=== PATIENT | female | born 1990 | race Caucasian/White ===

== ENCOUNTER 2016-12-03 21:27 | Inpatient (IN) | payer OTHER ==
[2016-12-03] MEDS ORDERED: Lactated Ringers 1,000 ML ONE (23:01)
[2016-12-03] MEDS ORDERED: Oxytocin/Lactated Ringers 10 UNIT/1,000 ML BAG IV SCH (23:45)
[2016-12-03] MEDS ORDERED: Nalbuphine 20 MG/1 ML Amp IVPUSH PRN (23:59)
[2016-12-03] MEDS ORDERED: Ondansetron 4 MG/2 ML SDV IVPUSH PRN (23:59)
[2016-12-03] MEDS ORDERED: Sodium Chloride 0.9% 10 ML Syringe FLUSH PRN (23:59)
[2016-12-04] MEDS: Lactated Ringers 1,000 ML IV SCH ×2 (00:37→04:00)
--- NOTE | 2016-12-04 01:40 | PCM.PREANE ---
Preanesthetic Assessment - Procedure Proposed Procedure: Labor Epidural - Anesthesia/Transfusion/Family Hx Anesthesia History: No Prior Anesthesia Family History of Anesthesia Reaction: No - Review of Systems General: No Symptoms Pulmonary: No Symptoms Cardiovascular: No Symptoms Gastrointestinal: No symptoms Neurological: No Symptoms Other: Reports: None - Physical Assessment NPO Status Date: 12/04/16 NPO Status Time: 19:00 Pulse: 64 O2 Sat by Pulse Oximetry: 100 Respiratory Rate: 18 Blood Pressure: 119/66 Temperature: 36.0 C Height: 1.71 m Weight: 74.389 kg ASA Class: 2 Mental Status: Alert & Oriented x3 Airway Class: Mallampati = 1 Dentition: Reports: Normal 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) Thyro-Mental Finger Breadths: 3 Mouth Opening Finger Breadths: 3 ROM/Head Extension: Full Lungs: Clear to auscultation, Normal respiratory effort Cardiovascular: Regular Rate, Regular Rhythm, No Murmurs - Lab Values: Laboratory Last Values WBC 15.85 K/mm3 (3.98-10.04) H 12/04/16 00:20 RBC 4.15 M/mm3 (3.98-5.22) 12/04/16 00:20 Hgb 11.8 gm/L (11.2-15.7) 12/04/16 00:20 Hct 35.2 % (34.1-44.9) 12/04/16 00:20 MCV 84.8 fl (79.4-94.8) 12/04/16 00:20 MCH 28.4 pg (25.6-32.2) 12/04/16 00:20 MCHC 33.5 g/dl (32.2-35.5) 12/04/16 00:20 RDW Std Deviation 41.1 fL (36.4-46.3) 12/04/16 00:20 Plt Count 228 K/mm3 (182-369) 12/04/16 00:20 MPV 11.7 fl (9.4-12.3) 12/04/16 00:20 Neut % (Auto) 75.1 % (34.0-71.1) H 12/04/16 00:20 Lymph % (Auto) 16.9 % (19.3-51.7) L 12/04/16 00:20 [place] % (Auto) 6.5 % (4.7-12.5) 12/04/16 00:20 Eos % (Auto) 0.6 (0.7-5.8) L 12/04/16 00:20 Baso % (Auto) 0.3 % (0.1-1.2) 12/04/16 00:20 Neut # (Auto) 11.91 K/mm3 (1.56-6.13) H 12/04/16 00:20 Lymph # (Auto) 2.68 K/mm3 (1.18-3.74) 12/04/16 00:20 [place] # (Auto) 1.03 K/mm3 (0.24-0.36) H 12/04/16 00:20 Eos # (Auto) 0.10 K/mm3 (0.04-0.36) 12/04/16 00:20 Baso # (Auto) 0.04 K/mm3 (0.01-0.08) 12/04/16 00:20 Membrane Rupture Positive H 12/03/16 22:10 Blood Type O POSITIVE 12/04/16 00:20 Gel Antibody Screen Negative 12/04/16 00:20 - Allergies Allergies/Adverse Reactions: Allergies Allergy/AdvReac Type Severity Reaction Status Date / Time No Known Allergies Allergy Verified 10/23/14 00:21 - Blood Blood Available: No - Acknowledgements Anesthesia Type Planned: Epidural Pt an Appropriate Candidate for the Planned Anesthesia: Yes Alternatives and Risks of Anesthesia Discussed w Pt/Guardian: Yes Pt/Guardian Understands and Agrees with Anesthesia Plan: Yes PreAnesthesia Questionnaire - Past Health History Medical/Surgical History: Denies Medical/Surgical History - SUBSTANCE USE Smoking Status *Q: Never Smoker Tobacco Use Within Last Twelve Months: No Second Hand Smoke Exposure: No Days Per Week of Alcohol Use: 0 Recreational Drug Use History: No - HOME MEDS Home Medications: Home Meds Naproxen [Naprosyn] 500 mg PO Q12HR #30 tab 10/23/14 [Rx] - CURRENT (IN HOUSE) MEDS Current Meds: Current Medications Lactated Ringer's (Ringers, Lactated) 1,000 mls @ 100 mls/hr IV ASDIRECTED KAYLAN Last Admin: 12/04/16 00:37 Dose: 100 mls/hr Oxytocin/Lactated Ringer's (Pitocin In Lr 10 Units/1,000 Ml) 10 unit in 1,000 mls @ 500 mls/hr IV TITRATE KAYLAN Nalbuphine HCl (Nubain) 10 mg IVPUSH Q2H PRN PRN Reason: Pain (moderate 4-6) Ondansetron HCl (Zofran) 4 mg IVPUSH Q4H PRN PRN Reason: Nausea/Vomiting Last Admin: 12/04/16 00:31 Dose: 4 mg Sodium Chloride (Saline Flush) 10 ml FLUSH ASDIRECTED PRN PRN Reason: Keep Vein Open Discontinued Medications Lactated Ringer's (Ringers, Lactated) Confirm Administered Dose 1,000 mls @ as directed .ROUTE .K-MED ONE Stop: 12/03/16 23:02 Last Admin: 12/04/16 00:37 Dose: Not Given Preanesthetic Assessment - PHYSICAL ASSESSMENT Height: 1.71 m Weight: 74.389 kg - LAB Values: Laboratory Last Values WBC 15.85 K/mm3 (3.98-10.04) H 12/04/16 00:20 RBC 4.15 M/mm3 (3.98-5.22) 12/04/16 00:20 Hgb 11.8 gm/L (11.2-15.7) 12/04/16 00:20 Hct 35.2 % (34.1-44.9) 12/04/16 00:20 MCV 84.8 fl (79.4-94.8) 12/04/16 00:20 MCH 28.4 pg (25.6-32.2) 12/04/16 00:20 MCHC 33.5 g/dl (32.2-35.5) 12/04/16 00:20 RDW Std Deviation 41.1 fL (36.4-46.3) 12/04/16 00:20 Plt Count 228 K/mm3 (182-369) 12/04/16 00:20 MPV 11.7 fl (9.4-12.3) 12/04/16 00:20 Neut % (Auto) 75.1 % (34.0-71.1) H 12/04/16 00:20 Lymph % (Auto) 16.9 % (19.3-51.7) L 12/04/16 00:20 [place] % (Auto) 6.5 % (4.7-12.5) 12/04/16 00:20 Eos % (Auto) 0.6 (0.7-5.8) L 12/04/16 00:20 Baso % (Auto) 0.3 % (0.1-1.2) 12/04/16 00:20 Neut # (Auto) 11.91 K/mm3 (1.56-6.13) H 12/04/16 00:20 Lymph # (Auto) 2.68 K/mm3 (1.18-3.74) 12/04/16 00:20 [place] # (Auto) 1.03 K/mm3 (0.24-0.36) H 12/04/16 00:20 Eos # (Auto) 0.10 K/mm3 (0.04-0.36) 12/04/16 00:20 Baso # (Auto) 0.04 K/mm3 (0.01-0.08) 12/04/16 00:20 Membrane Rupture Positive H 12/03/16 22:10 Blood Type O POSITIVE 12/04/16 00:20 Gel Antibody Screen Negative 12/04/16 00:20 - ALLERGIES Allergies/Adverse Reactions: Allergies Allergy/AdvReac Type Severity Reaction Status Date / Time No Known Allergies Allergy Verified 10/23/14 00:21
[2016-12-04] MEDS: Bupivacaine/fentaNYL/NS 100 ML Bag EPIDUR SCH ×2 (02:17→09:53)
--- NOTE | 2016-12-04 06:29 | PCM.LDHP ---
L&D History of Present Illness - General Date of Service: 12/04/16 Admit Problem/Dx: Patient Status Order with Admit Dx/Problem 12/03/16 21:39 Patient Status [ADT] Routine Patient Status: Refer to Observation Admission Diagnosis/Problem: Reason for Admit: preg Nurse Unit Type: Labor and Delivery Admitting Physician: Marla Marcelino Attending Physician: Marla Marcelino Medicare 96 Hour Certification Statement: This Patient is Admitted for Inpatient Services and is Medically Appropriate and Meets Medical Necessity for Inpatient Admission. I Reasonably Expect the Patient Will Require Inpatient Services That Span a Period of Time Over 2 Midnights. My Rationale for Medically Necessary Inpatient Care Will Be Found in the Admission History & Physical and Progress Notes. I Reasonably Expect the Patient to be Discharged or Transferred Within 96 Hours After Admission to This Critical [facility] Hospital. Admission Diagnosis/Problem Admission Diagnosis/Problem Source of Information: Patient History Limitations: Reports: No limitations - History of Present Illness Introduction:: Patient is a 26-year-old at 38-5/7 weeks gestation who presents today for spontaneous rupture of membranes. This occurred at approximately 9 PM tonight. Has been having some tightening and cramping of the abdomen, but nothing quite so uncomfortable that she would call contractions yet. - Related Data Allergies/Adverse Reactions: Allergies Allergy/AdvReac Type Severity Reaction Status Date / Time No Known Allergies Allergy Verified 10/23/14 00:21 Home Medications: Home Meds Naproxen [Naprosyn] 500 mg PO Q12HR #30 tab 10/23/14 [Rx] Past Medical History - Past Health History Medical/Surgical History: Denies Medical/Surgical History Genitourinary History: Reports: Other (see below) Other Genitourinary History: kidney infection at 26 weeks R[facility]ON CONER History: Reports: : 1 Para: 0 Social & Family History - Family History Family Medical History: Noncontributory - Tobacco Use Smoking Status *Q: Never Smoker Second Hand Smoke Exposure: No - Alcohol Use Alcohol Use History: No Days Per Week of Alcohol Use: 0 - Recreational Drug Use Recreational Drug Use: No H&P Review of Systems - Review of Systems: Review Of Systems: See Below General: Reports: no symptoms Pulmonary: Reports: No Symptoms Cardiovascular: Reports: no symptoms Gastrointestinal: Reports: No symptoms Genitourinary: Reports: no symptoms Musculoskeletal: Reports: no symptoms L&D Exam - Exam Exam: See Below - Vital Signs Vital Signs: Last Vital Signs Temp 36.0 C 12/04/16 01:46 Pulse 64 12/04/16 01:46 Resp 18 12/04/16 01:46 BP 119/66 12/04/16 01:46 Pulse Ox 100 12/04/16 01:46 Weight: 74.389 kg - OB Specific Contraction Intensity: Mild to Moderate movement: active heart tones: present heart tones per min: 125 Heart Rate (FHR) Variability: Moderate (6-25 bmp) Presentation: Vertex - Vang Score Vang Score Cervix Position: Anterior Vang Score Consistency: Soft Vang Score Effacement: 51-70% Vang Score Dilation: 1-2 cm Vang Score 's Station: -2 Vang Score Total: 8 - Exam General: alert, oriented, cooperative Lungs: Clear to auscultation, Normal respiratory effort Cardiovascular: regular rate, regular rhythm Abdomen: soft Genitourinary: Normal external exam Extremities: normal inspection Skin: warm, dry, intact - Patient Data Lab Results last 24 hrs: Laboratory Results - last 24 hr 12/03/16 12/04/16 12/04/16 Range/Units 22:10 00:20 00:20 WBC 15.85 H (3.98-10.04) K/mm3 RBC 4.15 (3.98-5.22) M/mm3 Hgb 11.8 (11.2-15.7) gm/L Hct 35.2 (34.1-44.9) % MCV 84.8 (79.4-94.8) fl MCH 28.4 (25.6-32.2) pg MCHC 33.5 (32.2-35.5) g/dl RDW Std Deviation 41.1 (36.4-46.3) fL Plt Count 228 (182-369) K/mm3 MPV 11.7 (9.4-12.3) fl Neut % (Auto) 75.1 H (34.0-71.1) % Lymph % (Auto) 16.9 L (19.3-51.7) % [place] % (Auto) 6.5 (4.7-12.5) % Eos % (Auto) 0.6 L (0.7-5.8) Baso % (Auto) 0.3 (0.1-1.2) % Neut # (Auto) 11.91 H (1.56-6.13) K/mm3 Lymph # (Auto) 2.68 (1.18-3.74) K/mm3 [place] # (Auto) 1.03 H (0.24-0.36) K/mm3 Eos # (Auto) 0.10 (0.04-0.36) K/mm3 Baso # (Auto) 0.04 (0.01-0.08) K/mm3 Membrane Rupture Positive H Blood Type O POSITIVE Gel Antibody Screen Negative Result Diagrams: 12/04/16 00:20 - Problem List (1) 38 weeks gestation of SNOMED Code(s): 38756282 ICD Code: Z3A.38 - 38 WEEKS GESTATION OF Status: Acute Current Visit: Yes (2) SROM (spontaneous rupture of membranes) SNOMED Code(s): 148578766 ICD Code: OXA9225 - Status: Acute Current Visit: Yes Problem List Initiated/Reviewed/Updated: Yes Orders Last 24hrs: Active Orders 24 hr Category Date Time Status Patient Status [ADT] Routine ADT 12/03/16 21:39 Active Activity as Tolerated [RC] PFP Care 12/03/16 23:59 Active Communication Order [RC] ASDIRECTED Care 12/03/16 23:59 Active Communication Order [RC] ASDIRECTED Care 12/04/16 01:34 Active Notify Provider [RC] ASDIRECTED Care 12/04/16 01:34 Active Notify Provider [RC] PFP Care 12/03/16 23:59 Active Notify Provider [RC] PRN Care 12/03/16 23:59 Active Oxygen Therapy [RC] ASDIRECTED Care 12/04/16 01:34 Active Peripheral IV Care [RC] . DIRECTED Care 12/04/16 00:01 Active Urinary Catheter Assessment [RC] ASDIRECTED Care 12/03/16 23:59 Active Vital Signs [RC] PER UNIT ROUTINE Care 12/03/16 23:59 Hold Vital Signs [RC] Q15M Care 12/04/16 01:34 Hold Clear Liquid Diet [DIET] Diet 12/05/16 Breakfast Active PATIENT RETYPE [BBK] Stat Lab 12/04/16 00:20 Results TYPE AND SCREEN [BBK] Stat Lab 12/03/16 23:59 Results Bupivacaine/fentaNYL/NS [fentaNYL/Bupivacaine/NS 2 MCG- Med 12/04/16 01:45 Active 0.125% 100 ML] 100 ml EPIDUR ASDIRECTED Lactated Ringers [Ringers, Lactated] 1,000 ml Med 12/03/16 23:45 Active IV ASDIRECTED Nalbuphine [Nubain] Med 12/03/16 23:59 Active 10 mg IVPUSH Q2H PRN Ondansetron [Zofran] Med 12/03/16 23:59 Active 4 mg IVPUSH Q4H PRN Oxytocin/Lactated Ringers [Pitocin in LR 10 Units/1,000 Med 12/03/16 23:45 Active ML] 10 unit in 1,000 ml IV TITRATE Sodium Chloride 0.9% [Saline Flush] Med 12/03/16 23:59 Active 10 ml FLUSH ASDIRECTED PRN Electronic Heart Tones Ext w TOCO [WOMSER] Oth 12/03/16 23:59 Ordered Routine Electronic Heart Tones Internal [WOMSER] Per Unit Oth 12/03/16 23:59 Ordered Routine Peripheral IV Insertion Adult [OM.PC] Routine Oth 12/03/16 23:59 Ordered Pulse Oximetry Continuous Monitoring [OM.PC] Routine Oth 12/04/16 01:34 Active Medication Orders Fentanyl/Bupivacaine HCl (Fentanyl/Bupivacaine/Ns 2 Mcg-0.125% 100 Ml) 100 ml EPIDUR ASDIRECTED [facility] Last Admin: 12/04/16 02:17 Dose: 100 ml Lactated Ringer's (Ringers, Lactated) 1,000 mls @ 100 mls/hr IV ASDIRECTED KAYLAN Last Admin: 12/04/16 04:00 Dose: 100 mls/hr Infusion: 12/04/16 01:30 Dose: 100 mls/hr Admin: 12/04/16 00:37 Dose: 100 mls/hr Oxytocin/Lactated Ringer's (Pitocin In Lr 10 Units/1,000 Ml) 10 unit in 1,000 mls @ 500 mls/hr IV TITRATE KAYLAN Nalbuphine HCl (Nubain) 10 mg IVPUSH Q2H PRN PRN Reason: Pain (moderate 4-6) Ondansetron HCl (Zofran) 4 mg IVPUSH Q4H PRN PRN Reason: Nausea/Vomiting Last Admin: 12/04/16 00:31 Dose: 4 mg Sodium Chloride (Saline Flush) 10 ml FLUSH ASDIRECTED PRN PRN Reason: Keep Vein Open Assessment/Plan Comment:: 6-year-old at 38-5/7 weeks gestation presents with SROM * CBC and type and screen * GBS negative, no need for antibiotics * Pain management per patient preference * Anticipate
--- NOTE | 2016-12-04 06:30 | PCM.PNLD ---
Labor Progress Note - VS & Meds Vital Signs: Last Vital Signs Temp 36.0 C 12/04/16 01:46 Pulse 64 12/04/16 01:46 Resp 18 12/04/16 01:46 BP 119/66 12/04/16 01:46 Pulse Ox 100 12/04/16 01:46 Active Medications: Current Medications Fentanyl/Bupivacaine HCl (Fentanyl/Bupivacaine/Ns 2 Mcg-0.125% 100 Ml) 100 ml EPIDUR ASDIRECTED COUNTS INCLUDE 234 BEDS AT THE [facility] Last Admin: 12/04/16 02:17 Dose: 100 ml Lactated Ringer's (Ringers, Lactated) 1,000 mls @ 100 mls/hr IV ASDIRECTED KAYLAN Last Admin: 12/04/16 04:00 Dose: 100 mls/hr Oxytocin/Lactated Ringer's (Pitocin In Lr 10 Units/1,000 Ml) 10 unit in 1,000 mls @ 500 mls/hr IV TITRATE COUNTS INCLUDE 234 BEDS AT THE [facility] Nalbuphine HCl (Nubain) 10 mg IVPUSH Q2H PRN PRN Reason: Pain (moderate 4-6) Ondansetron HCl (Zofran) 4 mg IVPUSH Q4H PRN PRN Reason: Nausea/Vomiting Last Admin: 12/04/16 00:31 Dose: 4 mg Sodium Chloride (Saline Flush) 10 ml FLUSH ASDIRECTED PRN PRN Reason: Keep Vein Open Discontinued Medications Lactated Ringer's (Ringers, Lactated) Confirm Administered Dose 1,000 mls @ as directed .ROUTE .STK-MED ONE Stop: 12/03/16 23:02 Last Admin: 12/04/16 00:37 Dose: Not Given - Uterine Contractions Uterine Monitoring Mode: External [place] Contraction Intensity: Moderate to Strong - Monitoring Monitor Mode: External Ultrasound Heart Rate (FHR) Baseline: 120 Heart Rate (FHR) Variability: Moderate (6-25 bmp) Accelerations: Present, 15x15 Decelerations: Early Strip Review: Category I - Vaginal Exam Dilation (cm): 8 Effacement (Percent): 90 Station: 1 Cervical Position: Anterior - Labor Progress (Free Text) Labor Progress: Doing well. Comfortable with epidural. Continue present management
[2016-12-04] MEDS ORDERED: Bupivacaine 0.25% 10 ML SDV ONE (10:00)
--- NOTE | 2016-12-04 12:23 | PCM.DEL ---
L & D Note - General Info Date of Service: 12/04/16 - Delivery Note Labor: spontaneous Delivery Outcome: Livebirth Delivery Method: Spontaneous Vaginal Delivery Delivery Mode: Spontaneous Presentation: Right Occiput Anterior (CHANDU) Nuchal cord: present, reduced Anesthesia Type: Epidural Amniotic Fluid Description: Clear Episiotomy Type: None Laceration: 2nd degree Suture type: vicryl Suture size: 2-0 Placenta: intact, spontaneous Cord: 3 vessels Estimated blood loss: 300 Resuscitation needed: Yes [place]: bulb syringe, stimulated, warmed, blanket used, warmer used Score 1 min: 8 Score 5 min: 9 Delivery Comments (Free Text/Narrative):: Patient found to be complete and began pushing. With maternal pushing effort head delivered from an CHANDU presentation. Nuchal cord present and reduced. With gentle downward traction the shoulders and body delivered. Infant placed on maternal abdomen. Cord clamped and cut. Cord blood obtained. Placenta allowed time to separate and then spontaneously expelled. Inspection of the perineum showed a 2nd degree laceration which was repaired in the typical fashion . - Patient Data Vitals - most recent: Last Vital Signs Temp 36.0 C 12/04/16 01:46 Pulse 64 12/04/16 01:46 Resp 18 12/04/16 01:46 BP 119/66 12/04/16 01:46 Pulse Ox 100 12/04/16 01:46 Weight - most recent: 74.389 kg I&O - last 24 hours: Intake & Output 12/03/16 12/04/16 12/04/16 22:59 06:59 14:59 Intake Total 0 Balance 0 Lab Results last 24 hrs: Laboratory Results - last 24 hr 12/03/16 12/04/16 12/04/16 Range/Units 22:10 00:20 00:20 WBC 15.85 H (3.98-10.04) K/mm3 RBC 4.15 (3.98-5.22) M/mm3 Hgb 11.8 (11.2-15.7) gm/L Hct 35.2 (34.1-44.9) % MCV 84.8 (79.4-94.8) fl MCH 28.4 (25.6-32.2) pg MCHC 33.5 (32.2-35.5) g/dl RDW Std Deviation 41.1 (36.4-46.3) fL Plt Count 228 (182-369) K/mm3 MPV 11.7 (9.4-12.3) fl Neut % (Auto) 75.1 H (34.0-71.1) % Lymph % (Auto) 16.9 L (19.3-51.7) % [place] % (Auto) 6.5 (4.7-12.5) % Eos % (Auto) 0.6 L (0.7-5.8) Baso % (Auto) 0.3 (0.1-1.2) % Neut # (Auto) 11.91 H (1.56-6.13) K/mm3 Lymph # (Auto) 2.68 (1.18-3.74) K/mm3 [place] # (Auto) 1.03 H (0.24-0.36) K/mm3 Eos # (Auto) 0.10 (0.04-0.36) K/mm3 Baso # (Auto) 0.04 (0.01-0.08) K/mm3 Membrane Rupture Positive H Blood Type O POSITIVE Gel Antibody Screen Negative Med Orders - Current: Current Medications Fentanyl/Bupivacaine HCl (Fentanyl/Bupivacaine/Ns 2 Mcg-0.125% 100 Ml) 100 ml EPIDUR ASDIRECTED [facility] Last Admin: 12/04/16 09:53 Dose: 100 ml Lactated Ringer's (Ringers, Lactated) 1,000 mls @ 100 mls/hr IV ASDIRECTED [facility] Last Admin: 12/04/16 04:00 Dose: 100 mls/hr Oxytocin/Lactated Ringer's (Pitocin In Lr 10 Units/1,000 Ml) 10 unit in 1,000 mls @ 500 mls/hr IV TITRATE [facility] Nalbuphine HCl (Nubain) 10 mg IVPUSH Q2H PRN PRN Reason: Pain (moderate 4-6) Ondansetron HCl (Zofran) 4 mg IVPUSH Q4H PRN PRN Reason: Nausea/Vomiting Last Admin: 12/04/16 00:31 Dose: 4 mg Sodium Chloride (Saline Flush) 10 ml FLUSH ASDIRECTED PRN PRN Reason: Keep Vein Open Discontinued Medications Lactated Ringer's (Ringers, Lactated) Confirm Administered Dose 1,000 mls @ as directed .ROUTE .STK-MED ONE Stop: 12/03/16 23:02 Last Admin: 12/04/16 00:37 Dose: Not Given - Problem List & Annotations (1) 38 weeks gestation of SNOMED Code(s): 20112497 Code(s): Z3A.38 - 38 WEEKS GESTATION OF Status: Acute Current Visit: Yes (2) SROM (spontaneous rupture of membranes) SNOMED Code(s): 092076377 Code(s): JMG0825 - Status: Acute Current Visit: Yes (3) Vaginal delivery SNOMED Code(s): 366301157 Code(s): O80 - ENCOUNTER FOR FULL-TERM UNCOMPLICATED DELIVERY Status: Acute Current Visit: Yes - Problem List Review Problem List Initiated/Reviewed/Updated: Yes - My Orders Last 24 Hours: My Active Orders 12/03/16 21:39 Patient Status [ADT] Routine 12/03/16 23:45 Lactated Ringers [Ringers, Lactated] 1,000 ml IV ASDIRECTED Oxytocin/Lactated Ringers [Pitocin in LR 10 Units/1,000 ML] 10 unit in 1,000 ml IV TITRATE 12/03/16 23:59 Activity as Tolerated [RC] PFP Communication Order [RC] ASDIRECTED Notify Provider [RC] PFP Notify Provider [RC] PRN Urinary Catheter Assessment [RC] ASDIRECTED Vital Signs [RC] PER UNIT ROUTINE Nalbuphine [Nubain] 10 mg IVPUSH Q2H PRN Ondansetron [Zofran] 4 mg IVPUSH Q4H PRN Sodium Chloride 0.9% [Saline Flush] 10 ml FLUSH ASDIRECTED PRN Electronic Heart Tones Ext w TOCO [WOMSER] Routine Electronic Heart Tones Internal [WOMSER] Per Unit Routine Peripheral IV Insertion Adult [OM.PC] Routine 12/04/16 00:01 Peripheral IV Care [RC] . DIRECTED 12/04/16 12:19 Patient Status Manage Transfer [TRANSFER] Routine Resuscitation Status Routine 12/04/16 Breakfast Regular Diet [DIET] - Assessment Assessment:: 26 y/o G1 now P1 PPD#0 from at 38 6/7 wks - Plan Plan:: * Routine cares * Encourage breast feeding * Discharge home in 1-2 days
[2016-12-04] MEDS ORDERED: Witch Hazel Medicated Pads 100/Jar TOP PRN (14:06)
[2016-12-04] MEDS ORDERED: Benzocaine/Menthol 20%-0.5% Spray 56 GM Canister TOP PRN (14:06)
[2016-12-04] MEDS ORDERED: Lanolin 100% Cream 7 GM Tube TOP PRN (14:06)
[2016-12-04] MEDS ORDERED: Acetaminophen 325 MG Tab PO PRN (14:06)
[2016-12-04] MEDS ORDERED: Ibuprofen 600 MG Tab PO PRN (14:06)
[2016-12-04] MEDS ORDERED: Docusate Sodium 100 MG Cap PO PRN (14:06)
--- NOTE | 2016-12-05 06:53 | PCM.PNPP ---
- General Info Date of Service: 12/05/16 Functional Status: Reports: pain controlled, tolerating diet, ambulating, urinating - Review of Systems General: Reports: No Symptoms Pulmonary: Reports: no symptoms Cardiovascular: Reports: No Symptoms Gastrointestinal: Reports: No symptoms Genitourinary: Reports: no symptoms Musculoskeletal: Reports: no symptoms - Patient Data Vital Signs - most recent: Last Vital Signs Temp 36.8 C 12/05/16 03:27 Pulse 83 12/05/16 03:27 Resp 18 12/05/16 03:27 BP 112/63 12/05/16 03:27 Pulse Ox 97 12/05/16 03:27 Weight - most recent: 74.389 kg I&O - last 24 hours: Intake & Output 12/04/16 12/04/16 12/05/16 14:59 22:59 06:59 Intake Total 0 0 Balance 0 0 Lab Results - last 24 hrs: Laboratory Results - last 24 hr 12/04/16 Range/Units 00:20 Blood Type O POSITIVE Gel Antibody Screen Negative Med Orders - Current: Current Medications Acetaminophen (Tylenol) 650 mg PO Q4H PRN PRN Reason: mild pain or fever Benzocaine/Menthol (Dermoplast Pain Relief [place]) 0 gm TOP ASDIRECTED PRN PRN Reason: Perineal Comfort Measure Last Admin: 12/04/16 14:20 Dose: 1 spray Docusate Sodium (Colace) 100 mg PO BID PRN PRN Reason: Constipation Emollient Ointment (Lansinoh Hpa) 0 gm TOP ASDIRECTED PRN PRN Reason: Sore Nipples Ibuprofen (Motrin) 600 mg PO Q4H PRN PRN Reason: Mild pain or fever Witch Radha (Tucks) 1 pad TOP ASDIRECTED PRN PRN Reason: Hemorrhoid pain Last Admin: 12/04/16 14:20 Dose: 1 pad Discontinued Medications Fentanyl/Bupivacaine HCl (Fentanyl/Bupivacaine/Ns 2 Mcg-0.125% 100 Ml) 100 ml EPIDUR ASDIRECTED [facility] Last Admin: 12/04/16 09:53 Dose: 100 ml Lactated Ringer's (Ringers, Lactated) Confirm Administered Dose 1,000 mls @ as directed .ROUTE .STK-MED ONE Stop: 12/03/16 23:02 Last Admin: 12/04/16 00:37 Dose: Not Given Lactated Ringer's (Ringers, Lactated) 1,000 mls @ 100 mls/hr IV ASDIRECTED [facility] Last Admin: 12/04/16 04:00 Dose: 100 mls/hr Oxytocin/Lactated Ringer's (Pitocin In Lr 10 Units/1,000 Ml) 10 unit in 1,000 mls @ 500 mls/hr IV TITRATE [facility] Last Admin: 12/04/16 12:03 Dose: 500 mls/hr Nalbuphine HCl (Nubain) 10 mg IVPUSH Q2H PRN PRN Reason: Pain (moderate 4-6) Ondansetron HCl (Zofran) 4 mg IVPUSH Q4H PRN PRN Reason: Nausea/Vomiting Last Admin: 12/04/16 00:31 Dose: 4 mg Sodium Chloride (Saline Flush) 10 ml FLUSH ASDIRECTED PRN PRN Reason: Keep Vein Open - Interaction Disposition, : [place] in Room with Family Infant Interaction: Holding Feeding: Breastfed ; Nursed Well Support Person: - Recovery Exam Fundal Tone: Firm Fundal Level: 1 Fingerbreadths Below Umbilicus Fundal Placement: Midline Lochia Amount: Small Lochia Color: Rubra/Red Perineum Description: Other (see below) Other Perinuem Description: repaired 2nd degree laceration Episiotomy/Laceration: Approximated Bladder Status: Voiding Urinary Elimination: Voided - Exam General: alert, oriented, cooperative Abdomen: soft, no tenderness Extremities: no edema Skin: warm, dry, intact - Problem List & Annotations (1) 38 weeks gestation of SNOMED Code(s): 02405706 Code(s): Z3A.38 - 38 WEEKS GESTATION OF Status: Acute Current Visit: Yes (2) SROM (spontaneous rupture of membranes) SNOMED Code(s): 342042650 Code(s): NSG4808 - Status: Acute Current Visit: Yes (3) Vaginal delivery SNOMED Code(s): 581133534 Code(s): O80 - ENCOUNTER FOR FULL-TERM UNCOMPLICATED DELIVERY Status: Acute Current Visit: Yes - Problem List Review Problem List Initiated/Reviewed/Updated: Yes - My Orders Last 24 Hours: My Active Orders 12/04/16 12:19 Resuscitation Status Routine 12/04/16 14:06 Activity as Tolerated [RC] PER UNIT ROUTINE Vital Signs [RC] Q8HR Acetaminophen [Tylenol] 650 mg PO Q4H PRN Benzocaine/Menthol [Dermoplast Pain Relief [place]] See Dose Instructions TOP ASDIRECTED PRN Docusate Sodium [Colace] 100 mg PO BID PRN Ibuprofen [Motrin] 600 mg PO Q4H PRN Lanolin [Lansinoh HPA] See Dose Instructions TOP ASDIRECTED PRN Witch Radha [Tucks] 1 pad TOP ASDIRECTED PRN Assess Lochia [WOMSER] Per Unit Routine Assess Uterine Involution [WOMSER] Per Unit Routine Breast Pump [WOMSER] Per Unit Routine Heat Therapy [OM.PC] PRN Ice Therapy [OM.PC] Per Unit Routine Perineal Care [OM.PC] Per Unit Routine Peripheral IV Discontinue [OM.PC] Routine Sitz Bath [OM.PC] Per Unit Routine 12/04/16 Lunch Regular Diet [DIET] 12/05/16 14:06 Heat Therapy [OM.PC] PRN - Assessment Assessment:: 26 y/o G1 now P1 PPD#1 from at 38 6/7 wks - Plan Plan:: * Routine cares * Encourage breast feeding * Discharge home today per patient preference
--- NOTE | 2016-12-05 07:39 | PCM.DCSUM1 ---
Discharge Summary - Discharge Data Discharge Date: 12/05/16 Discharge Disposition: Home, Self-Care 01 Condition: Good - Discharge Diagnosis/Problem(s) (1) 38 weeks gestation of SNOMED Code(s): 28229407 ICD Code: Z3A.38 - 38 WEEKS GESTATION OF Status: Acute Current Visit: Yes (2) SROM (spontaneous rupture of membranes) SNOMED Code(s): 162251533 ICD Code: [id number] - Status: Acute Current Visit: Yes (3) Vaginal delivery SNOMED Code(s): 640527406 ICD Code: O80 - ENCOUNTER FOR FULL-TERM UNCOMPLICATED DELIVERY Status: Acute Current Visit: Yes - Patient Summary/Data Complications: None Consults: None Recommended Follow-up Testing/Procedures: Follow up in 5-6 weeks for check Hospital Course: 26 y/o at 38 5/7 wks presented with SROM. She progressed well to complete dilation without the need for augmentation. She underwent an uncomplicated . see delivery note. she did well and was discharged home on PPD #1 per her preference - Patient Instructions Diet: Regular Diet as Tolerated Activity: As Tolerated Activity, Other: Pelvic rest for 6 weeks Driving: May Drive Today Showering/Bathing: May Shower Showering/Bathing, Other: May Bathe Notify Provider of: Fever, Increased Pain, Drainage, Nausea and/or Vomiting - Discharge Plan Home Medications: Home Meds Ibuprofen [IJD: Ibuprofen] 600 mg PO Q4H PRN #0 tablet 12/05/16 [Rx] Patient Handouts: Home Care Instructions for Mom, Eating Plan for Women Referrals: Marla Marcelino MD [Primary Care Provider] - (5-6 weeks post check ) - Discharge Summary/Plan Comment DC Time >30 min.: No - Patient Data Vitals - Most Recent: Last Vital Signs Temp 36.8 C 12/05/16 03:27 Pulse 83 12/05/16 03:27 Resp 18 12/05/16 03:27 BP 112/63 12/05/16 03:27 Pulse Ox 97 12/05/16 03:27 Weight - Most Recent: 74.389 kg I&O - Last 24 hours: Intake & Output 12/04/16 12/05/16 12/05/16 22:59 06:59 14:59 Intake Total 0 Balance 0 Lab Results - Last 24 hrs: Laboratory Results - last 24 hr 12/04/16 Range/Units 00:20 Blood Type O POSITIVE Gel Antibody Screen Negative Med Orders - Current: Current Medications Acetaminophen (Tylenol) 650 mg PO Q4H PRN PRN Reason: mild pain or fever Benzocaine/Menthol (Dermoplast Pain Relief [place]) 0 gm TOP ASDIRECTED PRN PRN Reason: Perineal Comfort Measure Last Admin: 12/04/16 14:20 Dose: 1 spray Docusate Sodium (Colace) 100 mg PO BID PRN PRN Reason: Constipation Emollient Ointment (Lansinoh Hpa) 0 gm TOP ASDIRECTED PRN PRN Reason: Sore Nipples Ibuprofen (Motrin) 600 mg PO Q4H PRN PRN Reason: Mild pain or fever Witch Radha (Tucks) 1 pad TOP ASDIRECTED PRN PRN Reason: Hemorrhoid pain Last Admin: 12/04/16 14:20 Dose: 1 pad Discontinued Medications Fentanyl/Bupivacaine HCl (Fentanyl/Bupivacaine/Ns 2 Mcg-0.125% 100 Ml) 100 ml EPIDUR ASDIRECTED [facility] Last Admin: 12/04/16 09:53 Dose: 100 ml Lactated Ringer's (Ringers, Lactated) Confirm Administered Dose 1,000 mls @ as directed .ROUTE .STK-MED ONE Stop: 12/03/16 23:02 Last Admin: 12/04/16 00:37 Dose: Not Given Lactated Ringer's (Ringers, Lactated) 1,000 mls @ 100 mls/hr IV ASDIRECTED [facility] Last Admin: 12/04/16 04:00 Dose: 100 mls/hr Oxytocin/Lactated Ringer's (Pitocin In Lr 10 Units/1,000 Ml) 10 unit in 1,000 mls @ 500 mls/hr IV TITRATE [facility] Last Admin: 12/04/16 12:03 Dose: 500 mls/hr Nalbuphine HCl (Nubain) 10 mg IVPUSH Q2H PRN PRN Reason: Pain (moderate 4-6) Ondansetron HCl (Zofran) 4 mg IVPUSH Q4H PRN PRN Reason: Nausea/Vomiting Last Admin: 12/04/16 00:31 Dose: 4 mg Sodium Chloride (Saline Flush) 10 ml FLUSH ASDIRECTED PRN PRN Reason: Keep Vein Open *Q Meaningful Use (DIS) - VTE *Q VTE Criteria *Q: - Stroke *Q Stroke Criteria *Q: - AMI *Q AMI Criteria *Q:
[2016-12-05 20:28] VITALS: BP 110/63
== END 2016-12-05 23:55 | disposition home or self-care (01) | DRG 775 ==
LOC: JD.OBCHECK 21:27 → JD.OB 21:27 → JD.OBCHECK 21:38 → JD.OB 21:39 → OBSVTOIN 12-04 12:02
PROVIDERS: ADMIT Obstetrics & Gynecology; ATTEND Obstetrics & Gynecology
PROC: 10E0XZZ Delivery of Products of Conception, External Approach (ICD-10-PCS; principal; 2016-12-04)
PROC: 0KQM0ZZ Repair Perineum Muscle, Open Approach (ICD-10-PCS; 2016-12-04)
PROC: 00HU33Z Insertion of Infusion Device into Spinal Canal, Percutaneous Approach (ICD-10-PCS; 2016-12-04)
PROC: 3E0R3CZ (ICD-10-PCS; 2016-12-04)
DX: O42.92 Full-term premature rupture of membranes, unspecified as to length of time between rupture and onset of labor (principal); O70.1 Second degree perineal laceration during delivery; O69.81X0 Labor and delivery complicated by cord around neck, without compression, not applicable or unspecified; Z3A.39 39 weeks gestation of pregnancy; Z37.0 Single live birth
CPT/HCPCS: 36415; 84112; 85025; 86850; 86900; 86901; A9270-GY; J2405; J2590; J7120

== ENCOUNTER 2018-09-10 04:08 | Inpatient (IN) | payer BC ==
[2018-09-10] MEDS ORDERED: Nalbuphine 20 MG/ML 1 ML Syringe IVPUSH PRN (04:27)
[2018-09-10] MEDS ORDERED: Ondansetron 4 MG/2 ML SDV IVPUSH PRN (04:37)
[2018-09-10] MEDS ORDERED: Sodium Chloride 0.9% 10 ML Syringe FLUSH PRN (04:37)
[2018-09-10] MEDS ORDERED: Oxytocin/Lactated Ringers 10 UNIT/1,000 ML BAG IV SCH (04:45)
[2018-09-10] MEDS ORDERED: fentaNYL 100 MCG/2 ML SDV EPIDUR PRN (04:48)
[2018-09-10] MEDS ORDERED: diphenhydrAMINE 50 MG/ML SDV IVPUSH PRN (04:48)
[2018-09-10] MEDS ORDERED: ePHEDrine 50 MG/ML SDV IVPUSH PRN (04:48)
[2018-09-10] MEDS: Lactated Ringers 1,000 ML IV SCH ×4 (04:57→10:45)
[2018-09-10] MEDS ORDERED: Bupivacaine/fentaNYL/NS 100 ML Bag EPIDUR SCH (05:00)
--- NOTE | 2018-09-10 05:07 | PCM.PREANE ---
Preanesthetic Assessment - Procedure Proposed Procedure: jeff - Anesthesia/Transfusion/Family Hx Anesthesia History: Prior Anesthesia Without Reaction Family History of Anesthesia Reaction: No Transfusion History: No Prior Transfusion(s) - Review of Systems General: No Symptoms Pulmonary: No Symptoms Cardiovascular: No Symptoms Gastrointestinal: No Symptoms Neurological: No Symptoms Other: Reports: None - Physical Assessment O2 Sat by Pulse Oximetry: 100 Respiratory Rate: 16 Vital Signs: Last Vital Signs Temp 99.4 F 09/10/18 04:27 Pulse 80 09/10/18 04:27 Resp 16 09/10/18 04:27 BP 135/84 09/10/18 04:27 Pulse Ox 100 09/10/18 04:27 Height: 5 ft 7 in Weight: 88.314 kg ASA Class: 2 Mental Status: Alert & Oriented x3 Airway Class: Mallampati = 1 Dentition: Reports: Normal Dentition Thyro-Mental Finger Breadths: 3 Mouth Opening Finger Breadths: 3 ROM/Head Extension: Full Lungs: Clear to Auscultation, Normal Respiratory Effort Cardiovascular: Regular Rate, Regular Rhythm - Allergies Allergies/Adverse Reactions: Allergies Allergy/AdvReac Type Severity Reaction Status Date / Time No Known Allergies Allergy Verified 09/10/18 05:05 - Blood Blood Available: No - Acknowledgements Anesthesia Type Planned: Epidural Pt an Appropriate Candidate for the Planned Anesthesia: Yes Alternatives and Risks of Anesthesia Discussed w Pt/Guardian: Yes Pt/Guardian Understands and Agrees with Anesthesia Plan: Yes PreAnesthesia Questionnaire - Past Health History Medical/Surgical History: Denies Medical/Surgical History HEENT History: Reports: None Cardiovascular History: Reports: None Respiratory History: Reports: None Gastrointestinal History: Reports: GERD (with preg) Genitourinary History: Reports: Other (See Below) Other Genitourinary History: 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: : 2 (39 weeks) Para: 1 - Past Surgical History HEENT Surgical History: Reports: None - History Comment History Comment: vits only - SUBSTANCE USE Smoking Status *Q: Never Smoker Tobacco Use Within Last Twelve Months: No Second Hand Smoke Exposure: No Days Per Week of Alcohol Use: 0 Recreational Drug Use History: No - HOME MEDS Home Medications: Home Meds PNV95/Ferrous Fumarate/FA [ Tablet] 1 tab PO DAILY 09/10/18 [History] - CURRENT (IN HOUSE) MEDS Current Meds: Current Medications Diphenhydramine HCl (Benadryl) 25 mg IVPUSH Q6H PRN PRN Reason: pruritis Ephedrine Sulfate (Ephedrine Sulfate) 5 mg IVPUSH ASDIRECTED PRN PRN Reason: Hypotension Fentanyl (Sublimaze) 100 mcg EPIDUR Q3H PRN PRN Reason: Pain Fentanyl/Bupivacaine HCl (Fentanyl/Bupivacaine/Ns 2 Mcg-0.125% 100 Ml) 100 ml EPIDUR ASDIRECTED [facility] Lactated Ringer's (Ringers, Lactated) 1,000 mls @ 100 mls/hr IV ASDIRECTED [facility] Last Admin: 09/10/18 04:57 Dose: 999 mls/hr Oxytocin/Lactated Ringer's (Pitocin In Lr 10 Units/1,000 Ml) 10 unit in 1,000 mls @ 500 mls/hr IV ASDIRECTED [facility] Nalbuphine HCl (Nubain) 10 mg IVPUSH Q2H PRN PRN Reason: pain Ondansetron HCl (Zofran) 4 mg IVPUSH Q4H PRN PRN Reason: Nausea/Vomiting Sodium Chloride (Saline Flush) 10 ml FLUSH ASDIRECTED PRN PRN Reason: Keep Vein Open
--- NOTE | 2018-09-10 07:53 | PCM.LDHP ---
L&D History of Present Illness - General Date of Service: 09/10/18 Admit Problem/Dx: Patient Status Order with Admit Dx/Problem 09/10/18 04:37 Patient Status [ADT] Routine Admission Diagnosis/Problem Admission Diagnosis/Problem Source of Information: Patient History Limitations: Reports: No Limitations - History of Present Illness Introduction:: 28 y/o at 39 0/7 wks who presents this AM in labor. Doing well. Contractions started at about 0100. Became worse this early AM. No other issues. 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): Social & Family History - Family History Family Medical History: Noncontributory - Tobacco Use Smoking Status *Q: Never Smoker Second Hand Smoke Exposure: No - Caffeine Use Caffeine Use: Reports: None - Alcohol Use Alcohol Use History: No Days Per Week of Alcohol Use: 0 - Recreational Drug Use Recreational Drug Use: No H&P Review of Systems - Review of Systems: Review Of Systems: See Below General: Reports: No Symptoms Pulmonary: Reports: No Symptoms Cardiovascular: Reports: No Symptoms Gastrointestinal: Reports: No Symptoms Genitourinary: Reports: No Symptoms Musculoskeletal: Reports: No Symptoms Psychiatric: Reports: No Symptoms Neurological: Reports: No Symptoms L&D Exam - Exam Exam: See Below - Vital Signs Vital Signs: Last Vital Signs Temp 37.4 C 09/10/18 04:27 Pulse 80 09/10/18 04:27 Resp 16 09/10/18 05:07 BP 135/84 09/10/18 04:27 Pulse Ox 100 09/10/18 05:07 Weight: 88.314 kg - OB Specific Contraction Intensity: Moderate Movement: Active Heart Tones: Present Heart Tones per Min: 125 Heart Rate (FHR) Variability: Moderate (6-25 bmp) Presentation: Vertex - Vang Score Vang Score Cervix Position: Anterior Vang Score Consistency: Soft Vang Score Effacement: 51-70% Vang Score Dilation: > 5 cm Vang Score Infant's Station: -1 ,0 Vang Score Total: 11 - Exam General: Alert, Oriented, Cooperative Lungs: Clear to Auscultation, Normal Respiratory Effort Cardiovascular: Regular Rate, Regular Rhythm GI/Abdominal Exam: Soft, Non-Tender Genitourinary: Normal external exam Extremities: Normal Inspection Skin: Warm, Dry, Intact - Patient Data Lab Results Last 24 hrs: Laboratory Results - last 24 hr 09/10/18 09/10/18 Range/Units 04:55 04:55 WBC 9.36 (3.98-10.04) K/mm3 RBC 4.09 (3.98-5.22) M/mm3 Hgb 10.1 L (11.2-15.7) gm/L Hct 32.3 L (34.1-44.9) % MCV 79.0 L (79.4-94.8) fl MCH 24.7 L (25.6-32.2) pg MCHC 31.3 L (32.2-35.5) g/dl RDW Std Deviation 41.4 (36.4-46.3) fL Plt Count 273 (182-369) K/mm3 MPV 10.7 (9.4-12.3) fl Neut % (Auto) 64.5 (34.0-71.1) % Lymph % (Auto) 27.1 (19.3-51.7) % [place] % (Auto) 6.6 (4.7-12.5) % Eos % (Auto) 1.2 (0.7-5.8) Baso % (Auto) 0.2 (0.1-1.2) % Neut # (Auto) 6.03 (1.56-6.13) K/mm3 Lymph # (Auto) 2.54 (1.18-3.74) K/mm3 [place] # (Auto) 0.62 H (0.24-0.36) K/mm3 Eos # (Auto) 0.11 (0.04-0.36) K/mm3 Baso # (Auto) 0.02 (0.01-0.08) K/mm3 Blood Type O POSITIVE Gel Antibody Screen Negative Result Diagrams: 09/10/18 04:55 - Problem List (1) 39 weeks gestation of SNOMED Code(s): 03663260 ICD Code: Z3A.39 - 39 WEEKS GESTATION OF Status: Acute Current Visit: Yes (2) Normal labor SNOMED Code(s): 74107709 ICD Code: O80 - ENCOUNTER FOR FULL-TERM UNCOMPLICATED DELIVERY; Z37.9 - OUTCOME OF DELIVERY, UNSPECIFIED Status: Acute Current Visit: Yes Problem List Initiated/Reviewed/Updated: Yes Orders Last 24hrs: Active Orders 24 hr Category Date Time Status Patient Status [ADT] Routine ADT 09/10/18 04:37 Active Activity as Tolerated [RC] PFP Care 09/10/18 04:27 Active Communication Order [RC] ASDIRECTED Care 09/10/18 04:27 Active Heart Tones [RC] ASDIRECTED Care 09/10/18 04:38 Active Non Stress Test [RC] PER UNIT ROUTINE Care 09/10/18 04:27 Active Notify Provider [RC] ASDIRECTED Care 09/10/18 04:48 Active Notify Provider [RC] PFP Care 09/10/18 04:27 Active Notify Provider [RC] PRN Care 09/10/18 04:27 Active Peripheral IV Care [RC] . DIRECTED Care 09/10/18 04:38 Active Vital Signs [RC] PER UNIT ROUTINE Care 09/10/18 04:27 Active Regular Diet [DIET] Diet 09/10/18 Breakfast Active RAPID PLASMA REAGIN,RPR [CHEM] Routine Lab 09/10/18 04:55 Received Bupivacaine/fentaNYL/NS [fentaNYL/Bupivacaine/NS 2 MCG- Med 09/10/18 05:00 Active 0.125% 100 ML] 100 ml EPIDUR ASDIRECTED Lactated Ringers [Ringers, Lactated] 1,000 ml Med 09/10/18 04:30 Active IV ASDIRECTED Nalbuphine [Nubain] Med 09/10/18 04:27 Active 10 mg IVPUSH Q2H PRN Ondansetron [Zofran] Med 09/10/18 04:37 Active 4 mg IVPUSH Q4H PRN Oxytocin/Lactated Ringers [Pitocin in LR 10 Units/1,000 Med 09/10/18 04:45 Active ML] 10 unit in 1,000 ml IV ASDIRECTED Sodium Chloride 0.9% [Saline Flush] Med 09/10/18 04:37 Active 10 ml FLUSH ASDIRECTED PRN diphenhydrAMINE [Benadryl] Med 09/10/18 04:48 Active 25 mg IVPUSH Q6H PRN ePHEDrine [ePHEDrine sulfate] Med 09/10/18 04:48 Active 5 mg IVPUSH ASDIRECTED PRN fentaNYL [Sublimaze] Med 09/10/18 04:48 Active 100 mcg EPIDUR Q3H PRN Electronic Heart Tones Ext w TOCO [WOMSER] Oth 09/10/18 04:27 Ordered Routine Electronic Heart Tones Internal [WOMSER] Per Unit Oth 09/10/18 04:27 Ordered Routine Peripheral IV Insertion Adult [OM.PC] Routine Oth 09/10/18 04:27 Ordered Resuscitation Status Routine Resus Stat 09/10/18 04:27 Ordered Medication Orders Diphenhydramine HCl (Benadryl) 25 mg IVPUSH Q6H PRN PRN Reason: pruritis Ephedrine Sulfate (Ephedrine Sulfate) 5 mg IVPUSH ASDIRECTED PRN PRN Reason: Hypotension Fentanyl (Sublimaze) 100 mcg EPIDUR Q3H PRN PRN Reason: Pain Last Admin: 09/10/18 05:10 Dose: 100 mcg Fentanyl/Bupivacaine HCl (Fentanyl/Bupivacaine/Ns 2 Mcg-0.125% 100 Ml) 100 ml EPIDUR ASDIRECTED [facility] Last Admin: 09/10/18 05:10 Dose: 100 ml Lactated Ringer's (Ringers, Lactated) 1,000 mls @ 100 mls/hr IV ASDIRECTED [facility] Last Admin: 09/10/18 06:48 Dose: 150 mls/hr Infusion: 09/10/18 06:48 Dose: 999 mls/hr Admin: 09/10/18 05:58 Dose: 999 mls/hr Infusion: 09/10/18 05:58 Dose: 999 mls/hr Admin: 09/10/18 04:57 Dose: 999 mls/hr Oxytocin/Lactated Ringer's (Pitocin In Lr 10 Units/1,000 Ml) 10 unit in 1,000 mls @ 500 mls/hr IV ASDIRECTED [facility] Nalbuphine HCl (Nubain) 10 mg IVPUSH Q2H PRN PRN Reason: pain Ondansetron HCl (Zofran) 4 mg IVPUSH Q4H PRN PRN Reason: Nausea/Vomiting Sodium Chloride (Saline Flush) 10 ml FLUSH ASDIRECTED PRN PRN Reason: Keep Vein Open Assessment/Plan Comment:: 28 y/o at 39 0/7 wks presents in labor * Labs * GBS negative, no need for antibiotics * Epidural for pain control * Anticipate
--- NOTE | 2018-09-10 11:14 | PCM.PNLD ---
Labor Progress Note - VS & Meds Vital Signs: Last Vital Signs Temp 37.4 C 09/10/18 04:27 Pulse 80 09/10/18 04:27 Resp 16 09/10/18 05:07 BP 135/84 09/10/18 04:27 Pulse Ox 100 09/10/18 05:07 Active Medications: Current Medications Diphenhydramine HCl (Benadryl) 25 mg IVPUSH Q6H PRN PRN Reason: pruritis Ephedrine Sulfate (Ephedrine Sulfate) 5 mg IVPUSH ASDIRECTED PRN PRN Reason: Hypotension Fentanyl (Sublimaze) 100 mcg EPIDUR Q3H PRN PRN Reason: Pain Last Admin: 09/10/18 05:10 Dose: 100 mcg Fentanyl/Bupivacaine HCl (Fentanyl/Bupivacaine/Ns 2 Mcg-0.125% 100 Ml) 100 ml EPIDUR ASDIRECTED [facility] Last Admin: 09/10/18 05:10 Dose: 100 ml Lactated Ringer's (Ringers, Lactated) 1,000 mls @ 100 mls/hr IV ASDIRECTED [facility] Last Admin: 09/10/18 10:45 Dose: 150 mls/hr Oxytocin/Lactated Ringer's (Pitocin In Lr 10 Units/1,000 Ml) 10 unit in 1,000 mls @ 500 mls/hr IV ASDIRECTED [facility] Nalbuphine HCl (Nubain) 10 mg IVPUSH Q2H PRN PRN Reason: pain Ondansetron HCl (Zofran) 4 mg IVPUSH Q4H PRN PRN Reason: Nausea/Vomiting Sodium Chloride (Saline Flush) 10 ml FLUSH ASDIRECTED PRN PRN Reason: Keep Vein Open - Uterine Contractions Uterine Monitoring Mode: External Adin Contraction Intensity: Moderate - Monitoring Monitor Mode: External Ultrasound Heart Rate (FHR) Baseline: 125 Heart Rate (FHR) Variability: Moderate (6-25 bmp) Accelerations: Present, 15x15 Decelerations: Variable, Intermittent (<50% x 20 min) Strip Review: Category II - Vaginal Exam Dilation (cm): 9 Effacement (Percent): 90 Station: 0 Cervical Position: Midposition - Labor Progress (Free Text) Labor Progress: Doing well. Comfortable with epidural. Continue present management
--- NOTE | 2018-09-10 12:02 | PCM.DEL ---
L & D Note - General Info Date of Service: 09/10/18 - Delivery Note Labor: Spontaneous Delivery Outcome: Livebirth Delivery Mode: Spontaneous Presentation: Left Occiput Anterior (SEBASTIAN) Nuchal Cord: None Anesthesia Type: Epidural Amniotic Fluid Description: Clear Episiotomy Type: None Laceration: 1st Degree Suture type: Vicryl Suture size: 3-0 Placenta: Spontaneous Cord: 3 Vessels Estimated Blood Loss: 200 [place]: Bulb Syringe, Stimulated, Warmed, [place] Used, Warmer Used Delivery Comments (Free Text/Narrative):: Patient found to be complete and began pushing. With maternal pushing effort head delivered from an SEBASTIAN presentation. No nuchal cord present. With gentle downward traction the shoulders and body delivered. Infant placed on maternal abdomen. Cord clamped and cut. Cord blood obtained. Placenta allowed time to separate and expelled intact. Inspection of the perineum showed a 1st degree laceration which was repaired with a 2-0 vicryl in the typical fashion - General Info Date of Service: 09/10/18 - Patient Data Vitals - Most Recent: Last Vital Signs Temp 37.4 C 09/10/18 04:27 Pulse 80 09/10/18 04:27 Resp 16 09/10/18 05:07 BP 135/84 09/10/18 04:27 Pulse Ox 100 09/10/18 05:07 Weight - Most Recent: 88.314 kg I&O - Last 24 Hours: Intake & Output 09/09/18 09/10/18 09/10/18 22:59 06:59 14:59 Intake Total 0 Balance 0 Lab Results Last 24 Hours: Laboratory Results - last 24 hr 09/10/18 09/10/18 Range/Units 04:55 04:55 WBC 9.36 (3.98-10.04) K/mm3 RBC 4.09 (3.98-5.22) M/mm3 Hgb 10.1 L (11.2-15.7) gm/L Hct 32.3 L (34.1-44.9) % MCV 79.0 L (79.4-94.8) fl MCH 24.7 L (25.6-32.2) pg MCHC 31.3 L (32.2-35.5) g/dl RDW Std Deviation 41.4 (36.4-46.3) fL Plt Count 273 (182-369) K/mm3 MPV 10.7 (9.4-12.3) fl Neut % (Auto) 64.5 (34.0-71.1) % Lymph % (Auto) 27.1 (19.3-51.7) % [place] % (Auto) 6.6 (4.7-12.5) % Eos % (Auto) 1.2 (0.7-5.8) Baso % (Auto) 0.2 (0.1-1.2) % Neut # (Auto) 6.03 (1.56-6.13) K/mm3 Lymph # (Auto) 2.54 (1.18-3.74) K/mm3 [place] # (Auto) 0.62 H (0.24-0.36) K/mm3 Eos # (Auto) 0.11 (0.04-0.36) K/mm3 Baso # (Auto) 0.02 (0.01-0.08) K/mm3 Blood Type O POSITIVE Gel Antibody Screen Negative Med Orders - Current: Current Medications Diphenhydramine HCl (Benadryl) 25 mg IVPUSH Q6H PRN PRN Reason: pruritis Ephedrine Sulfate (Ephedrine Sulfate) 5 mg IVPUSH ASDIRECTED PRN PRN Reason: Hypotension Fentanyl (Sublimaze) 100 mcg EPIDUR Q3H PRN PRN Reason: Pain Last Admin: 09/10/18 05:10 Dose: 100 mcg Fentanyl/Bupivacaine HCl (Fentanyl/Bupivacaine/Ns 2 Mcg-0.125% 100 Ml) 100 ml EPIDUR ASDIRECTED [facility] Last Admin: 09/10/18 05:10 Dose: 100 ml Lactated Ringer's (Ringers, Lactated) 1,000 mls @ 100 mls/hr IV ASDIRECTED [facility] Last Admin: 09/10/18 10:45 Dose: 150 mls/hr Oxytocin/Lactated Ringer's (Pitocin In Lr 10 Units/1,000 Ml) 10 unit in 1,000 mls @ 500 mls/hr IV ASDIRECTED [facility] Nalbuphine HCl (Nubain) 10 mg IVPUSH Q2H PRN PRN Reason: pain Ondansetron HCl (Zofran) 4 mg IVPUSH Q4H PRN PRN Reason: Nausea/Vomiting Sodium Chloride (Saline Flush) 10 ml FLUSH ASDIRECTED PRN PRN Reason: Keep Vein Open - Problem List & Annotations (1) 39 weeks gestation of SNOMED Code(s): 02488237 Code(s): Z3A.39 - 39 WEEKS GESTATION OF Status: Acute Current Visit: Yes (2) Normal labor SNOMED Code(s): 07465046 Code(s): O80 - ENCOUNTER FOR FULL-TERM UNCOMPLICATED DELIVERY; Z37.9 - OUTCOME OF DELIVERY, UNSPECIFIED Status: Acute Current Visit: Yes (3) Vaginal delivery SNOMED Code(s): 422840414 Code(s): O80 - ENCOUNTER FOR FULL-TERM UNCOMPLICATED DELIVERY Status: Acute Current Visit: No - Problem List Review Problem List Initiated/Reviewed/Updated: Yes - My Orders Last 24 Hours: My Active Orders 09/10/18 04:27 Activity as Tolerated [RC] PFP Communication Order [RC] ASDIRECTED Non Stress Test [RC] PER UNIT ROUTINE Notify Provider [RC] PFP Notify Provider [RC] PRN Vital Signs [RC] PER UNIT ROUTINE Nalbuphine [Nubain] 10 mg IVPUSH Q2H PRN Electronic Heart Tones Ext w TOCO [WOMSER] Routine Electronic Heart Tones Internal [WOMSER] Per Unit Routine Peripheral IV Insertion Adult [OM.PC] Routine Resuscitation Status Routine 09/10/18 04:30 Lactated Ringers [Ringers, Lactated] 1,000 ml IV ASDIRECTED 09/10/18 04:37 Patient Status [ADT] Routine Ondansetron [Zofran] 4 mg IVPUSH Q4H PRN Sodium Chloride 0.9% [Saline Flush] 10 ml FLUSH ASDIRECTED PRN 09/10/18 04:38 Heart Tones [RC] ASDIRECTED Peripheral IV Care [RC] . DIRECTED 09/10/18 04:45 Oxytocin/Lactated Ringers [Pitocin in LR 10 Units/1,000 ML] 10 unit in 1,000 ml IV ASDIRECTED 09/10/18 04:55 RAPID PLASMA REAGIN,RPR [CHEM] Routine 09/10/18 Breakfast Regular Diet [DIET] - Assessment Assessment:: 28 y/o G2 now P2002 PPD#0 from at 39 0/7 wks - Plan Plan:: * Routine cares * Encourage breast feeding * Discharge home in 1-2 days
[2018-09-10] MEDS ORDERED: Benzocaine/Menthol 20%-0.5% Spray 56 GM Canister TOP PRN (12:36)
[2018-09-10] MEDS ORDERED: Docusate Sodium 100 MG Cap PO PRN (12:36)
[2018-09-10] MEDS ORDERED: Acetaminophen 325 MG Tab PO PRN (12:36)
[2018-09-10] MEDS ORDERED: Ibuprofen 600 MG Tab PO PRN (12:36)
[2018-09-10] MEDS ORDERED: Witch Hazel Medicated Pads 100/Jar TOP PRN (12:36)
[2018-09-10] MEDS ORDERED: Lanolin 100% Cream 7 GM Tube TOP PRN (12:36)
[2018-09-10] MEDS ORDERED: Bupivacaine 0.25% 10 ML SDV ONE (18:00)
--- NOTE | 2018-09-11 08:58 | PCM.SN ---
- Free Text/Narrative Note: note: Patient is doing well in the period. Minimal lochia, voiding well, ambulated without problems. Nursing without concerns. Patient is afebrile, vital signs are stable Abdomen is flat, soft, uterus is below the umbilicus and is firm and nontender. Legs are nontender. Assessment: recovery going well. Plan: Routine care. Patient be discharged home within the next 24-48 hours. Baby has Rh- blood-needs to stay 48 hours per pediatric recommendation.
--- NOTE | 2018-09-12 06:34 | PCM.DCSUM1 ---
Discharge Summary - Hospital Course Free Text/Narrative:: Prachi is a 28-year-old 2 now para 2002 white female was admitted on in active labor. She delivered a viable, hernandes, in left occiput anterior position. Due to epidural for labor analgesia. She had first- degree laceration which was repaired with 3-0 Vicryl. Has been blood loss was 200 mL. patient is doing well. She has had normal vital signs. She is ambulating well, has minimal lochia and is voiding without concerns. She is desiring discharge home at this time. Diagnosis: Stroke: No - Discharge Data Discharge Date: 09/12/18 Discharge Disposition: Home, Self-Care 01 Condition: Good - Patient Instructions Diet: Regular Diet as Tolerated (Nursing diet with increased calories and calcium is recommended) Activity: As Tolerated (No intercourse or tampons until bleeding resolves) Driving: Do Not Drive (1-2 days) Showering/Bathing: May Shower (May take a bath) Notify Provider of: Fever, Increased Pain, Swelling and Redness, Nausea and/or Vomiting - Discharge Plan Home Medications: Home Meds PNV95/Ferrous Fumarate/FA [ Tablet] 1 tab PO DAILY 09/10/18 [History] Acetaminophen [Tylenol] 650 mg PO Q4H PRN tablet 09/12/18 [Rx] Docusate Sodium [Colace] 100 mg PO BID PRN cap 09/12/18 [Rx] Ibuprofen [Motrin] 600 mg PO Q6H PRN tablet 09/12/18 [Rx] Referrals: Marla Marcelino MD [Primary Care Provider] - (Return to clinic[facility]. [facility] weeks.) - Discharge Summary/Plan Comment DC Time >30 min.: No Discharge Summary/Plan Comment: Discharge instructions: 1. Discharge home 2. Diet, activity and follow-up discussed with patient. Recommend nursing diet with increased calories and calcium. 3. Precautions given concern increased pain, bleeding, temperature, signs/ symptoms of DVT/PE. 4. Medications per home medication was printed, discussed with and given to the patient. 5. Return to clinic-[facility]. Marcelino[facility] in 2 weeks. Diagnosis: Term -delivered Condition: Good - Patient Data Vitals - Most Recent: Last Vital Signs Temp 36.9 C 09/12/18 03:03 Pulse 73 09/12/18 03:03 Resp 14 09/12/18 03:03 BP 131/84 09/12/18 03:03 Pulse Ox 97 09/12/18 03:03 Weight - Most Recent: 88.314 kg I&O - Last 24 hours: Intake & Output 09/11/18 09/11/18 09/12/18 14:59 22:59 06:59 Intake Total 240 120 Balance 240 120 Med Orders - Current: Current Medications Acetaminophen (Tylenol) 650 mg PO Q4H PRN PRN Reason: mild pain or fever Benzocaine/Menthol (Dermoplast Pain Relief [place]) 0 gm TOP ASDIRECTED PRN PRN Reason: Perineal Comfort Measure Docusate Sodium (Colace) 100 mg PO BID PRN PRN Reason: Constipation Emollient Ointment (Lansinoh Hpa) 0 gm TOP ASDIRECTED PRN PRN Reason: Sore Nipples Ibuprofen (Motrin) 600 mg PO Q6H PRN PRN Reason: Mild pain or fever Last Admin: 09/11/18 20:06 Dose: 600 mg Witch Radha (Tucks) 1 pad TOP ASDIRECTED PRN PRN Reason: Hemorrhoid pain Discontinued Medications Bupivacaine HCl (Sensorcaine-Mpf 0.25%) 10 ml .ROUTE .STK-MED ONE Stop: 09/10/18 18:01 Diphenhydramine HCl (Benadryl) 25 mg IVPUSH Q6H PRN PRN Reason: pruritis Ephedrine Sulfate (Ephedrine Sulfate) 5 mg IVPUSH ASDIRECTED PRN PRN Reason: Hypotension Fentanyl (Sublimaze) 100 mcg EPIDUR Q3H PRN PRN Reason: Pain Last Admin: 09/10/18 05:10 Dose: 100 mcg Fentanyl/Bupivacaine HCl (Fentanyl/Bupivacaine/Ns 2 Mcg-0.125% 100 Ml) 100 ml EPIDUR ASDIRECTED [facility] Last Admin: 09/10/18 05:10 Dose: 100 ml Lactated Ringer's (Ringers, Lactated) 1,000 mls @ 100 mls/hr IV ASDIRECTED KAYLAN Last Admin: 09/10/18 10:45 Dose: 150 mls/hr Oxytocin/Lactated Ringer's (Pitocin In Lr 10 Units/1,000 Ml) 10 unit in 1,000 mls @ 500 mls/hr IV ASDIRECTED KAYLAN Nalbuphine HCl (Nubain) 10 mg IVPUSH Q2H PRN PRN Reason: pain Ondansetron HCl (Zofran) 4 mg IVPUSH Q4H PRN PRN Reason: Nausea/Vomiting Sodium Chloride (Saline Flush) 10 ml FLUSH ASDIRECTED PRN PRN Reason: Keep Vein Open
[2018-09-12 11:36] VITALS: BP 126/77
== END 2018-09-12 11:55 | disposition home or self-care (01) | DRG 560 ==
LOC: JD.OB 04:08 → JD.OBCHECK 04:08 → JD.OB 04:37 → OBSVTOIN 11:41 → JD.OB 11:42
PROVIDERS: ADMIT Obstetrics & Gynecology; ATTEND Obstetrics & Gynecology
PROC: 10E0XZZ Delivery of Products of Conception, External Approach (ICD-10-PCS; principal; 2018-09-10)
PROC: 0HQ9XZZ Repair Perineum Skin, External Approach (ICD-10-PCS; principal; 2018-09-10)
PROC: 6A550ZT Pheresis of Cord Blood Stem Cells, Single (ICD-10-PCS; principal; 2018-09-10)
PROC: 00HU33Z Insertion of Infusion Device into Spinal Canal, Percutaneous Approach (ICD-10-PCS; 2018-09-10)
PROC: 3E0R3BZ Introduction of Anesthetic Agent into Spinal Canal, Percutaneous Approach (ICD-10-PCS; 2018-09-10)
DX: O70.0 First degree perineal laceration during delivery (principal); Z3A.39 39 weeks gestation of pregnancy; Z37.0 Single live birth
CPT/HCPCS: 36415; 51702; 59025; 59409; 85025; 86592; 86850; 86900; 86901; A9270-GY; J3010; J3490; J7120